=== PATIENT | male | born 1975 | race Two or more races ===

== ENCOUNTER 2021-07-13 21:25 | Inpatient (IN) | payer BC ==
[~2021-07-13] VITALS: Ht 175.3 cm; Wt 86.2 kg
[2021-07-13 21:30] VITALS: BP 134/83
[2021-07-13 22:00] VITALS: BP 134/83
[2021-07-13] MEDS ORDERED: BISACODYL 10MG SUPP PR PRN (22:15)
[2021-07-13] MEDS ORDERED: ONDANSETRON 4MG ODT PO PRN (22:15)
[2021-07-13] MEDS ORDERED: MAGNESIUM HYDROXIDE 400MG/5ML 30ML UDC PO PRN (22:15)
[2021-07-13] MEDS ORDERED: DOCUSATE SODIUM 250MG CAPSULE PO SCH (22:15)
[2021-07-13] MEDS ORDERED: OXYCODONE HCL 5MG TABLET PO PRN (22:15)
[2021-07-13] MEDS ORDERED: OXYCODONE HCL 10MG TABLET SR 12HR PO PRN (22:15)
[2021-07-13] MEDS ORDERED: ACETAMINOPHEN 325MG TABLET PO SCH (22:30)
[2021-07-13] MEDS ORDERED: HYDRALAZINE HCL 25MG TABLET PO PRN (22:33)
[2021-07-13] MEDS: ACETAMINOPHEN 500MG TABLET PO SCH (22:45)
[2021-07-14] MEDS: ACETAMINOPHEN 500MG TABLET PO SCH ×3 (06:08→21:53)
[2021-07-14 08:00] VITALS: BP 126/4
[2021-07-14] MEDS: POLYETHYLENE GLYCOL 3350 (17GM) 1 DOSE PACK PO SCH (09:00)
[2021-07-14] MEDS: METHOCARBAMOL 500MG TABLET PO PRN (09:16)
[2021-07-14] MEDS: GABAPENTIN 300MG CAPSULE PO SCH ×3 (09:56→16:29)
[2021-07-14] MEDS: AMOXICILLIN/POTASSIUM CLAVULANATE 875/125MG TAB PO SCH ×2 (09:56→21:17)
[2021-07-14] MEDS: METHOCARBAMOL 750MG TABLET PO SCH ×4 (09:56→21:18)
[2021-07-14] MEDS: CHOLECALCIFEROL (D3) 1000 UNIT TABLET PO SCH (09:57)
[2021-07-14] MEDS: DOCUSATE SODIUM 250MG CAPSULE PO SCH ×2 (09:57→21:17)
[2021-07-14] MEDS: SENNOSIDES 8.6MG TABLET PO SCH ×2 (09:57→21:18)
[2021-07-14] MEDS: CHLORHEXIDINE GLUCONATE 0.12% MOUTHWASH UDC SSP SCH ×4 (09:57→21:37)
[2021-07-14] MEDS: DICLOFENAC SODIUM 1% GEL 50GM TOP SCH ×4 (09:58→21:18)
[2021-07-14] MEDS: BACITRACIN 15GM TUBE TOP SCH ×2 (09:58→21:18)
[2021-07-14 10:00] LABS: BASOPHILS % 0.6 % (0.0-2.0); EOSINOPHILS % 2.6 % (0.0-5.0); HEMATOCRIT. 38.4 % (42.0-52.0); HEMOGLOBIN. 12.7 g/dL (14.0-18.0); MEAN CORPUSCULAR HEMOGLOBIN 33.1 pg (28.0-32.0); MEAN CORPUSCULAR VOLUME 99.5 fL (80.0-94.0); MEAN PLATELET VOLUME 8.7 fl (7.4-10.4); MONOCYTES % 7.9 % (2.0-8.0); NEUTROPHILS % 71.9 % (40.0-76.0); PLATELET 169 x1000/uL (130-400); RED BLOOD CELL COUNT 3.85 mill/uL (4.7-6.1); RED CELL DISTRIBUTION WIDTH 13.4 % (11.6-14.6)
[2021-07-14] MEDS ORDERED: INFLUENZA VACCINE 05/PF 0.5 ML SYRINGE IM ONE (10:00)
[2021-07-14 10:05] LABS: CHLORIDE 105 mEq/L (98-107)
[2021-07-14 11:34] LABS: BASOPHILS % 0.6 % (0.0-2.0); HEMATOCRIT. 37.8 % (42.0-52.0); HEMOGLOBIN. 12.7 g/dL (14.0-18.0); LYMPHOCYTES % 13.7 % (20.0-50.0); MEAN CORPUSCULAR HEMOGLOBIN 33.3 pg (28.0-32.0); MEAN PLATELET VOLUME 9.1 fl (7.4-10.4); MONOCYTES % 10.1 % (2.0-8.0); NEUTROPHILS % 73.6 % (40.0-76.0); PLATELET 179 x1000/uL (130-400); RED BLOOD CELL COUNT 3.82 mill/uL (4.7-6.1); RED CELL DISTRIBUTION WIDTH 13.4 % (11.6-14.6)
[2021-07-14 11:51] LABS: CHLORIDE 103 mEq/L (98-107)
[2021-07-14 11:57] LABS: TOTAL IRON BINDING CAPACITY 247 ug/dL (250-450)
[2021-07-14 12:19] LABS: VITAMIN B12 SERUM 963 pg/mL (211-911)
[2021-07-14 12:21] LABS: FERRITIN 519 ng/mL (22-322)
[2021-07-14] MEDS ORDERED: ENOXAPARIN 40MG/0.4ML SYR SUBCUT SCH (13:00)
[2021-07-14 20:00] VITALS: BP 125/73
[2021-07-15] MEDS: ACETAMINOPHEN 500MG TABLET PO SCH ×3 (06:00→21:54)
[2021-07-15 08:00] VITALS: BP 125/88
[2021-07-15] MEDS: POLYETHYLENE GLYCOL 3350 (17GM) 1 DOSE PACK PO SCH (08:42)
[2021-07-15] MEDS: GABAPENTIN 300MG CAPSULE PO SCH ×3 (08:43→16:07)
[2021-07-15] MEDS: SENNOSIDES 8.6MG TABLET PO SCH ×2 (08:43→21:00)
[2021-07-15] MEDS: METHOCARBAMOL 500MG TABLET PO PRN ×3 (08:43→21:56)
[2021-07-15] MEDS: DOCUSATE SODIUM 250MG CAPSULE PO SCH ×2 (08:44→21:54)
[2021-07-15] MEDS: AMOXICILLIN/POTASSIUM CLAVULANATE 875/125MG TAB PO SCH ×2 (08:44→21:54)
[2021-07-15] MEDS: METHOCARBAMOL 750MG TABLET PO SCH ×4 (08:48→21:58)
[2021-07-15] MEDS: DICLOFENAC SODIUM 1% GEL 50GM TOP SCH ×4 (09:00→21:00)
[2021-07-15] MEDS: BACITRACIN 15GM TUBE TOP SCH ×2 (09:00→21:00)
[2021-07-15] MEDS: CHOLECALCIFEROL (D3) 1000 UNIT TABLET PO SCH (10:35)
[2021-07-15] MEDS: CHLORHEXIDINE GLUCONATE 0.12% MOUTHWASH UDC SSP SCH ×3 (10:35→21:00)
[2021-07-15 16:51] LABS: BASOPHILS % 0.5 % (0.0-2.0); EOSINOPHILS % 2.4 % (0.0-5.0); HEMATOCRIT. 37.9 % (42.0-52.0); HEMOGLOBIN. 12.8 g/dL (14.0-18.0); LYMPHOCYTES % 20.6 % (20.0-50.0); MEAN CORPUSCULAR HEMOGLOBIN 33.7 pg (28.0-32.0); MEAN CORPUSCULAR VOLUME 99.6 fL (80.0-94.0); MEAN PLATELET VOLUME 8.4 fl (7.4-10.4); MONOCYTES % 9.8 % (2.0-8.0); NEUTROPHILS % 66.7 % (40.0-76.0); PLATELET 224 x1000/uL (130-400); RED BLOOD CELL COUNT 3.81 mill/uL (4.7-6.1); RED CELL DISTRIBUTION WIDTH 13.9 % (11.6-14.6)
[2021-07-15 17:15] LABS: CHLORIDE 105 mEq/L (98-107)
[2021-07-15 20:00] VITALS: BP 127/77
[2021-07-16] MEDS: ACETAMINOPHEN 500MG TABLET PO SCH ×3 (06:16→22:45)
[2021-07-16 08:00] VITALS: BP 123/81
[2021-07-16] MEDS: DOCUSATE SODIUM 250MG CAPSULE PO SCH ×2 (09:00→21:08)
[2021-07-16] MEDS: CHOLECALCIFEROL (D3) 1000 UNIT TABLET PO SCH (09:00)
[2021-07-16] MEDS: POLYETHYLENE GLYCOL 3350 (17GM) 1 DOSE PACK PO SCH (09:00)
[2021-07-16] MEDS: GABAPENTIN 300MG CAPSULE PO SCH ×3 (09:01→17:29)
[2021-07-16] MEDS: AMOXICILLIN/POTASSIUM CLAVULANATE 875/125MG TAB PO SCH ×2 (09:01→21:07)
[2021-07-16] MEDS: METHOCARBAMOL 750MG TABLET PO SCH ×4 (09:02→21:07)
[2021-07-16] MEDS: SENNOSIDES 8.6MG TABLET PO SCH ×2 (09:02→21:08)
[2021-07-16] MEDS: BACITRACIN 15GM TUBE TOP SCH ×3 (09:03→21:13)
[2021-07-16] MEDS: DICLOFENAC SODIUM 1% GEL 50GM TOP SCH ×5 (09:03→21:13)
[2021-07-16 09:35] LABS: BASOPHILS % 0.8 % (0.0-2.0); EOSINOPHILS % 2.6 % (0.0-5.0); HEMATOCRIT. 38.7 % (42.0-52.0); HEMOGLOBIN. 13.1 g/dL (14.0-18.0); LYMPHOCYTES % 19.4 % (20.0-50.0); MEAN CORPUSCULAR HEMOGLOBIN 33.6 pg (28.0-32.0); MEAN CORPUSCULAR VOLUME 99.5 fL (80.0-94.0); MONOCYTES % 8.7 % (2.0-8.0); NEUTROPHILS % 68.5 % (40.0-76.0); PLATELET 240 x1000/uL (130-400); RED BLOOD CELL COUNT 3.89 mill/uL (4.7-6.1); RED CELL DISTRIBUTION WIDTH 13.5 % (11.6-14.6)
[2021-07-16 09:42] LABS: CHLORIDE 106 mEq/L (98-107)
[2021-07-16 12:38] LABS: HEPATITIS B SURFACE ANTIGEN NEGATIVE
[2021-07-16] MEDS: ENOXAPARIN 40MG/0.4ML SYR SUBCUT SCH (18:30)
[2021-07-16 20:00] VITALS: BP 116/80
[2021-07-17] MEDS ORDERED: NALOXONE HCL 0.4MG/ML VIAL IV PRN (04:00)
[2021-07-17] MEDS: ACETAMINOPHEN 500MG TABLET PO SCH ×3 (06:45→21:41)
[2021-07-17 08:07] VITALS: BP 137/80
[2021-07-17] MEDS: DOCUSATE SODIUM 250MG CAPSULE PO SCH ×3 (09:00→21:41)
[2021-07-17] MEDS ORDERED: INFLUENZA VACCINE 05/PF 0.5 ML SYRINGE IM ONE (09:00)
[2021-07-17] MEDS: DICLOFENAC SODIUM 1% GEL 50GM TOP SCH ×4 (09:00→21:40)
[2021-07-17] MEDS: BACITRACIN 15GM TUBE TOP SCH ×3 (09:00→21:40)
[2021-07-17] MEDS: POLYETHYLENE GLYCOL 3350 (17GM) 1 DOSE PACK PO SCH (09:00)
[2021-07-17] MEDS: METHOCARBAMOL 500MG TABLET PO PRN (09:35)
[2021-07-17] MEDS: AMOXICILLIN/POTASSIUM CLAVULANATE 875/125MG TAB PO SCH ×2 (09:36→21:40)
[2021-07-17] MEDS: GABAPENTIN 300MG CAPSULE PO SCH ×3 (09:36→21:40)
[2021-07-17] MEDS: CHOLECALCIFEROL (D3) 1000 UNIT TABLET PO SCH (09:36)
[2021-07-17] MEDS: ENOXAPARIN 40MG/0.4ML SYR SUBCUT SCH (09:36)
[2021-07-17] MEDS: SENNOSIDES 8.6MG TABLET PO SCH ×3 (09:41→21:41)
[2021-07-17] MEDS: METHOCARBAMOL 750MG TABLET PO SCH (09:43)
[2021-07-17] MEDS ORDERED: METHOCARBAMOL 500MG TABLET PO PRN (14:00)
[2021-07-17] MEDS ORDERED: OXYCODONE HCL/ACETAMINOPHEN 5/325MG TABLET PO PRN (14:00)
[2021-07-17 20:00] VITALS: BP 119/76
[2021-07-18 06:30] VITALS: BP_SYST 121; BP_SYST 125; BP_DIAS 77; BP_DIAS 83
[2021-07-18] MEDS: ACETAMINOPHEN 500MG TABLET PO SCH ×3 (06:45→22:03)
[2021-07-18 08:26] VITALS: BP 115/66
[2021-07-18] MEDS: CHOLECALCIFEROL (D3) 1000 UNIT TABLET PO SCH (08:50)
[2021-07-18] MEDS: SENNOSIDES 8.6MG TABLET PO SCH ×2 (08:50→21:00)
[2021-07-18] MEDS: GABAPENTIN 300MG CAPSULE PO SCH ×3 (08:51→17:00)
[2021-07-18] MEDS: ENOXAPARIN 40MG/0.4ML SYR SUBCUT SCH (08:51)
[2021-07-18] MEDS: AMOXICILLIN/POTASSIUM CLAVULANATE 875/125MG TAB PO SCH ×2 (08:54→21:00)
[2021-07-18] MEDS: DOCUSATE SODIUM 250MG CAPSULE PO SCH ×2 (09:00→22:04)
[2021-07-18] MEDS: DICLOFENAC SODIUM 1% GEL 50GM TOP SCH ×4 (09:00→21:00)
[2021-07-18] MEDS: POLYETHYLENE GLYCOL 3350 (17GM) 1 DOSE PACK PO SCH (09:00)
[2021-07-18] MEDS: BACITRACIN 15GM TUBE TOP SCH ×2 (09:00→21:00)
[2021-07-18 20:00] VITALS: BP 125/76
[2021-07-19] MEDS: ACETAMINOPHEN 500MG TABLET PO SCH ×2 (06:34→14:44)
[2021-07-19 08:00] VITALS: BP 117/76
[2021-07-19] MEDS: GABAPENTIN 300MG CAPSULE PO SCH ×2 (08:34→12:09)
[2021-07-19] MEDS: SENNOSIDES 8.6MG TABLET PO SCH (08:35)
[2021-07-19] MEDS: CHOLECALCIFEROL (D3) 1000 UNIT TABLET PO SCH (08:35)
[2021-07-19] MEDS: DOCUSATE SODIUM 250MG CAPSULE PO SCH (08:35)
[2021-07-19] MEDS: BACITRACIN 15GM TUBE TOP SCH (08:38)
[2021-07-19] MEDS: POLYETHYLENE GLYCOL 3350 (17GM) 1 DOSE PACK PO SCH (08:39)
[2021-07-19] MEDS: ENOXAPARIN 40MG/0.4ML SYR SUBCUT SCH (08:39)
[2021-07-19] MEDS: DICLOFENAC SODIUM 1% GEL 50GM TOP SCH ×2 (08:39→12:12)
[2021-07-19] MEDS ORDERED: HYDR-4134 PO (11:40)
[2021-07-19] MEDS ORDERED: OXYC1TAB5 PO (11:40)
[2021-07-19] MEDS ORDERED: DOCU250C14 PO (11:40)
[2021-07-19] MEDS ORDERED: GABA-532 PO (11:40)
[2021-07-19] MEDS ORDERED: METH-773 PO (11:40)
[2021-07-19 13:51] VITALS: BP 126/85
[2021-07-20 17:11] LABS: 25-HYDROXY VITAMIN D3 29 ng/mL (.)
== END 2021-07-19 16:47 | disposition home health service (06) | DRG 86 ==
PROVIDERS: ADMIT Physical Medicine & Rehabilitation Spinal Cord Injury Medicine; ATTEND Family Medicine Adult Medicine
DX: S06.6X0A Traumatic subarachnoid hemorrhage without loss of consciousness, initial encounter (principal); S12.300A Unspecified displaced fracture of fourth cervical vertebra, initial encounter for closed fracture; S22.019A Unspecified fracture of first thoracic vertebra, initial encounter for closed fracture; S22.089A Unspecified fracture of T11-T12 vertebra, initial encounter for closed fracture; S02.2XXA Fracture of nasal bones, initial encounter for closed fracture; S01.512A Laceration without foreign body of oral cavity, initial encounter; R13.10 Dysphagia, unspecified; D72.829 Elevated white blood cell count, unspecified; S50.02XA Contusion of left elbow, initial encounter; R53.81 Other malaise; R26.89 Other abnormalities of gait and mobility; I10 Essential (primary) hypertension; K82.4 Cholesterolosis of gallbladder; N28.1 Cyst of kidney, acquired; R74.01 Elevation of levels of liver transaminase levels; S13.4XXA Sprain of ligaments of cervical spine, initial encounter; V29.88XA Motorcycle rider (driver) (passenger) injured in other specified transport accidents, initial encounter; Y93.55 Activity, bike riding; Y92.828 Other wilderness area as the place of occurrence of the external cause; Y99.8 Other external cause status; Z90.49 Acquired absence of other specified parts of digestive tract
CPT/HCPCS: 36415; 72128; 76700; 80048; 80053; 80076; 82248; 82306; 82607; 82728; 83540; 83550; 84134; 84443; 85025; 86705; 86709; 86803; 87340; 90686; 92523; 92610; 93970; 97110; 97112; 97116; 97162; 97166; 97530; 97535; J1650